=== PATIENT | female | born 1940 | race Hispanic/Latino ===

== ENCOUNTER → 2019-04-13 | Outpatient (CLI) | payer OTHER ==
[~2019-04-13] MED LIST: ASPI-1181 PO; LISI2.5T2 PO; LOVA40TA2 PO; METO25TA6 PO
== END | disposition home or self-care (01) ==
LOC: RAH 09:41
PROVIDERS: ATTEND Internal Medicine
DX: Q25.46 Tortuous aortic arch (principal); I13.10 Hypertensive heart and chronic kidney disease without heart failure, with stage 1 through stage 4 chronic kidney disease, or unspecified chronic kidney disease; N18.9 Chronic kidney disease, unspecified
CPT/HCPCS: 71046

== ENCOUNTER → 2023-03-16 | Outpatient (CLI) | payer OTHER ==
[~2023-03-16] MED LIST changes: -ASPI-1181 PO; +ASPI-1443 PO; +LISI2.5T13 PO; -LISI2.5T2 PO
[2023-03-16 12:28] LABS: BASOPHILS # (AUTO) 0.05 K/uL (0.00-0.20); BASOPHILS % (AUTO) 0.9 % (0.0-5.0); EOSINOPHILS # (AUTO) 0.05 K/uL (0.00-0.70); EOSINOPHILS % (AUTO) 0.9 % (0.0-8.0); IMMATURE GRANULOCYTE ABSOLUTE 0.01 K/uL (0-1); LYMPHOCYTES # (AUTO) 2.2 K/uL (1.0-4.8); LYMPHOCYTES % (AUTO) 37.6 % (21.0-51.0); MEAN CORPUSCULAR HEMOGLOBIN 30.7 pg (27.0-33.0); MEAN CORPUSCULAR HGB CONC 33.4 g/dL (32.0-36.0); MEAN CORPUSCULAR VOLUME 91.9 fL (79-99); MONOCYTES # (AUTO) 0.4 K/uL (0.1-1.0); MONOCYTES % (AUTO) 7.7 % (3.0-13.0); NEUTROPHILS % (AUTO) 52.7 % (40.0-77.0); PLATELET COUNT (AUTO) 190 K/uL (130-400); RED BLOOD CELL COUNT(AUTO) 4.46 MIL/uL (4.00-5.50); RED CELL DISTRIBUTION WIDTH 13.5 % (11.0-15.5); WHITE BLOOD COUNT (AUTO) 5.8 K/uL (4.8-10.8)
[2023-03-16 12:56] LABS: CREATININE 0.8 mg/dL (0.5-1.5); POTASSIUM 3.7 mmol/L (3.5-5.1)
== END | disposition home or self-care (01) ==
LOC: LAB 10:51
PROVIDERS: ATTEND Urology
DX: N39.0 Urinary tract infection, site not specified (principal)
CPT/HCPCS: 36415; 80048; 85025

== ENCOUNTER → 2023-03-20 | Outpatient (CLI) | payer OTHER ==
[~2023-03-20] MED LIST changes: +IOHEXOL-350 75 ML VIAL IV ONE
== END | disposition home or self-care (01) ==
LOC: RAH 08:01
PROVIDERS: ATTEND Urology
DX: N28.1 Cyst of kidney, acquired (principal); N39.0 Urinary tract infection, site not specified; K57.90 Diverticulosis of intestine, part unspecified, without perforation or abscess without bleeding; N32.89 Other specified disorders of bladder; M47.815 Spondylosis without myelopathy or radiculopathy, thoracolumbar region
CPT/HCPCS: 74178; Q9967

== ENCOUNTER → 2024-09-08 | Outpatient (CLI) | payer OTHER ==
[~2024-09-08] MED LIST changes: -IOHEXOL-350 75 ML VIAL IV ONE
[2024-09-08 09:38] LABS: ALBUMIN 4.1 g/dL (3.5-5.0); BILIRUBIN,TOTAL 1.3 mg/dL (0.2-1.0); CREATININE 0.8 mg/dL (0.5-1.0); POTASSIUM 4.1 mmol/L (3.5-5.1); TOTAL PROTEIN, SERUM 7.6 g/dL (6.0-8.3)
== END | disposition home or self-care (01) ==
LOC: LAB 08:40
PROVIDERS: ATTEND Internal Medicine
DX: I12.9 Hypertensive chronic kidney disease with stage 1 through stage 4 chronic kidney disease, or unspecified chronic kidney disease (principal); N18.2 Chronic kidney disease, stage 2 (mild)
CPT/HCPCS: 36415; 80053

== ENCOUNTER → 2024-09-12 | Outpatient (CLI) | payer OTHER ==
[~2024-09-12] MED LIST changes: +IOHEXOL 350 MG/ML 100ML INFUS..BTL IV ONE
--- NOTE | 2024-09-12 13:26 | HMCIMG ---
Exam Type: CT UROGRAM (ABD/PEL WWO) Clinical Information: Urinary tract infection, site not specified Comparison: None Contrast: 100 cc's Isovue 370 IV, no complications or adverse reactions CT Dose Index (CTDI): 31.60 mGy Dose Length Product (DLP): 1740.80 total mGy-cm Findings: No evidence of nephro or ureterolithiasis is found. No hydronephrosis or ureteral dilatation is seen. Small simple cysts of both kidneys are seen. The lung bases are clear. The stomach is unremarkable. It shows no wall thickening. No gross ulceration is seen. It is not overly distended. There are no surrounding inflammatory changes. No wall lesions are identified to suggest cancer. The spleen is unremarkable. It is not enlarged. The pancreas shows normal anatomy. It is not fatty replaced. It shows no lesions. The pancreatic duct is not dilated. The gallbladder is unremarkable. It shows no cholelithiasis. The gallbladder wall is normal in thickness. There is no pericholecystic fluid. The is no acute or chronic inflammation noted. The adrenal glands are unremarkable. There is no enlargement. No lesions are noted. The liver is unremarkable. It shows no focal masses. The appendix is unremarkable. It shows no evidence of inflammation. No appendicolith is seen. The small bowel is unremarkable. There is no evidence of dilatation to suggest obstruction. No evidence of adynamic ileus is seen. There is no small bowel wall thickening to suggest enteritis. There is diverticulosis. There is no evidence of acute inflammation to suggest diverticulitis. The colon is otherwise unremarkable. The urinary bladder is unremarkable. There is no wall thickening to suggest tumor or inflammation. There are no intraluminal calculi. There are no diverticula. There is no evidence of chronic bladder outlet obstruction. There is no evidence of urinary bladder distention to suggest urinary retention. The other pelvic structures are unremarkable. The bony and vascular structures are unremarkable for the patient's age. IMPRESSION: Normal urinary tract except for small simple cysts of the kidneys. This study was performed using dose reduction techniques to include automated exposure control and/or adjustment of the mA and/or kV according to patient size.
== END | disposition home or self-care (01) ==
LOC: RAH 09:24
PROVIDERS: ATTEND Internal Medicine
DX: N28.1 Cyst of kidney, acquired (principal); K57.90 Diverticulosis of intestine, part unspecified, without perforation or abscess without bleeding; N39.0 Urinary tract infection, site not specified; N02.9 Recurrent and persistent hematuria with unspecified morphologic changes
CPT/HCPCS: 74178; Q9967

== ENCOUNTER 2024-12-17 01:37 | Emergency (ER) | payer OTHER ==
[~2024-12-17] VITALS: Ht 160 cm; Wt 72.6 kg
[~2024-12-17 01:37] MED LIST changes: -IOHEXOL 350 MG/ML 100ML INFUS..BTL IV ONE
--- NOTE | 2024-12-17 01:43 | ERN ---
General Chief Complaint: Mechanical Fall Stated Complaint: FALL Time Seen by MD: 01:43 Source: patient History of Present Illness Initial Comments Patient got out of bed and then fell onto her back. She has full memory of the event. She did not hit her head. Her pain is localized to her right ribcage at the level of about T10. No other symptoms no shortness of breath no chest pain fully neurologically intact. Allergies: Coded Allergies: No Known Drug Allergies (Unverified Allergy, Unknown, 02/09/16) Home Meds Active Scripts Aspirin (Aspirin EC) 81 Mg Tablet.dr, 81 MG PO DAILY, #90 TAB 1 Refill Prov:FAINA BEASLEY MD 02/04/17 Lisinopril (Lisinopril) 2.5 Mg Tablet, 2.5 MG PO HS, #45 TAB 1 Refill Prov:FAINA BEASLEY MD 02/04/17 Metoprolol Tartrate (Metoprolol Tartrate) 25 Mg Tablet, 0.5 MG PO BID, #30 TAB 2 Refills Prov:FAINA BEASLEY MD 02/04/17 Reported Medications Lovastatin (Lovastatin) 40 Mg Tablet, 40 MG PO HS, TAB 02/09/16 Constitutional: (-) chills, (-) diaphoresis, (-) fever, (-) malaise, (-) weakness, (-) other documentation EENTM: (-) eye pain, (-) blurred vision, (-) tearing, (-) double vision, (-) ear pain, (-) ear discharge, (-) nose pain, (-) nose congestion, (-) throat pain, (-) Throat swelling, (-) mouth pain, (-) tooth pain, (-) mouth swelling, (-) other documentation Respiratory: (-) cough, (-) orthopnea, (-) short of breath, (-) stridor, (-) wheezing, (-) other documentation Cardiovascular: (+) chest pain Gastrointestinal/Abdominal: (-) nausea, (-) vomiting, (-) diarrhea, (-) abdominal pain, (-) abdominal distention, (-) constipation, (-) rectal bleeding, (-) dark stool/melena, (-) other documentation Genitourinary: (-) vaginal discharge, (-) vaginal bleeding, (-) dysuria, (-) frequency, (-) hematuria, (-) pain, (-) other documentation Musculoskeletal: (-) Neck pain, (-) back pain, (-) Flank Pain, (-) joint pain, (-) joint swelling, (-) muscle pain, (-) muscle stiffness, (-) gout, (-) other documentation Skin: (-) laceration, (-) contusion, (-) abrasion, (-) abscess, (-) rash, (-) change in color, (-) change in hair, (-) change in nails, (-) diaphoresis, (-) dryness, (-) other documentation Physical Exam General Appearance: (+) mild distress Orientation: (+) alert, (+) oriented x 3 Head/Face Trauma: No Eye: bilateral eye normal inspection, bilateral eye PERRL, bilateral eye EOMI Ear, Nose, Throat: (+) hearing grossly normal, (+) normal ENT inspection, (+) moist mucous membraine Neck: (+) normal inspection, (+) supple, (+) full range of motion Respiratory Comment Posterior chest wall tenderness along rib T10. Heart: (+) regular, (+) no gallop Vascular: (+) no edema, (+) normal peripheral pulse Gastrointestinal: (+) soft, (+) non-tender, (+) bowel sound present MDM Get a CT scan of the patient's chest without contrast. CT scan of the chest does not show any rib fractures, or pulmonary contusions or pneumothorax. Patient is still has some pain I will give her some nor flex and Toradol IM and discharge her. ED Course Orders Procedure Category Date Status Time Ct Chest W/O Contrast CT 12/17/24 Taken 01:47 Ketorolac 60mg/2ml PHA 12/17/24 Logged (Toradol 60mg/2ml) 03:00 Orphenadrine Citrate PHA 12/17/24 Logged (Norflex) 03:00 Current Medications Medications (Trade) Dose Ordered Sig/Miguel Ángel Route PRN Reason Start Time Stop Time Status Last Admin Dose Admin Ketorolac Tromethamine (toRADol 60MG/ 2ML) 60 mg ONCE ONCE IM 12/17/24 03:00 12/17/24 03:01 UNV Orphenadrine Citrate (Norflex) 60 mg ONCE ONCE IM 12/17/24 03:00 12/17/24 03:01 UNV Vital Signs Date Time Temp Pulse Resp B/P (MAP) Pulse Ox O2 Delivery O2 Flow Rate FiO2 12/17/24 02:02 97.9 62 18 166/74 97 Room Air* 0 21 12/17/24 01:39 97.9 76 16 182/80 98 Room Air DX & DISP Disposition: Discharge Departure Impression: Primary Impression: Ground-level fall Additional Impression: Contusion, chest wall Condition: Stable Additional Instructions: You have bruised the right side of your back from the fall. CT scan shows no fractures or lung injuries. You can control your pain with Tylenol or ibuprofen and warm compresses as well. Please see your primary care physician if the pain persists beyond a week. Referrals: FAINA BEASLEY MD (PCP) MECHELLE SYKES MD Dec 17, 2024 01:43
[2024-12-17] MEDS: ORPHENADRINE 60MG/2ML IM ONE (02:59)
[2024-12-17 03:12] VITALS: BP 149/67; PULSE 64; RESP 18; TEMP 98; O2SAT 98
--- NOTE | 2024-12-17 04:15 | HMCIMG ---
EXAM: Non-contrast CT examination of the chest CLINICAL HISTORY: Rule out fracture. TECHNIQUE: Thin collimated axial CT images of the chest were obtained with sagittal and coronal reformatted images also submitted. CT scan is done according to ALARA (As Low as Reasonably Achievable). CONTRAST USED: None. COMPARISON: None provided. FINDINGS: Subsegmental atelectasis in the right middle, left lingula, and bilateral lower lobes of the lung. No acute infiltrate, effusion, or pneumothorax. No pericardial effusion. The cardiac size is within normal limits. Calcific atherosclerotic disease in the thoracic aorta and coronary arteries. The thoracic aorta and pulmonary artery are normal in diameter. No mediastinal, axillary, or supraclavicular lymphadenopathy. There is a calcified nodule in the right lobe of the thyroid. There is a punctate calcified granuloma in the right hepatic lobe. Nonspecific punctate subcapsular calcifications in the posterior aspect of the liver and spleen. Status postcholecystectomy. Tiny hiatal hernia. Tiny calcified nodes around the gastroesophageal junction. Degenerative osseous changes. No acute fracture is evident. IMPRESSION: No acute fracture. No acute cardiopulmonary process is evident. Subsegmental atelectasis in the right middle, left lingula, and bilateral lower lobes of the lung. /[place]
== END 2024-12-17 03:15 | disposition home or self-care (01) ==
LOC: EDH 01:37
DX: S20.211A Contusion of right front wall of thorax, initial encounter (principal); Z79.82 Long term (current) use of aspirin; Z79.899 Other long term (current) drug therapy; W06.XXXA Fall from bed, initial encounter; Y93.89 Activity, other specified; Y92.89 Other specified places as the place of occurrence of the external cause; Y99.8 Other external cause status
CPT/HCPCS: 99285; 71250; 96372 ×2; J1885; J2360